=== PATIENT | male | born 2000 | race Caucasian/White ===

== ENCOUNTER → 2023-02-03 10:53 | Outpatient (BNVA) | payer SELFPAY | PROVIDERS: PCP Nurse Practitioner Family; Visit Provider Physician Assistant Medical | DX: Z02.79 Encounter for issue of other medical certificate (principal) ==

== ENCOUNTER 2025-04-05 13:39 | Outpatient (AMB) | payer BC, SELFPAY ==
--- NOTE | 2025-04-05 13:43 | A.OFFPC_ITS ---
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 Allergies No Known Allergies Allergy (Verified 04/05/25 14:02) Medication List - Last Reconciled 04/05/[address] PA-C No Known Home Meds Tobacco use date assessed: 04/05/25 Dental Screening Dental Screen Date: 04/05/25 Did you have a dental visit in the last 12 months?: Yes Did you have a dental problem in the last 6 months where you did not have access to dental care?: No Was dental information given to patient?: Yes HPI Establish Care HPI Details The patient is a 25-year-old male presenting with establishment of primary care, annual physical exam and and in addition for evaluation of hand numbness. The patient reports numbness in both hands, particularly affecting the first three fingers, which is most pronounced in the morning upon waking. He describes the sensation as similar to when one sits on their hands, and it is exacerbated by certain positions during sleep and activities such as holding a phone or driving. The patient has a history of visiting urgent care and a hand specialist, where carpal tunnel syndrome, cubital tunnel syndrome, and ulnar nerve entrapment were discussed. He has not undergone any surgical interventions and is considering non-surgical options such as wrist braces and physical therapy. The patient has no significant past medical history except for a previous right arm fracture. He has no history of medication use and has not had recent blood work, except for a normal urinalysis in 2019. Socially, the patient works for the [employer], lives alone, and denies the use of tobacco, alcohol, or recreational drugs. He has a family history of cardiovascular issues, including his father having high blood pressure and a stroke in his 40s. Social History - Employment: Works for the [employer] - Housing: Lives alone - Substance Use: Denies use of tobacco, alcohol, or recreational drugs - Family History: Father had high blood pressure and a stroke in his 40s [facility] Medical History (Updated 04/05/25 @ 14:[address] PA-C) Ulnar nerve entrapment Preventative health care Annual physical exam Bilateral wrist pain Cubital tunnel syndrome Carpal tunnel syndrome on both sides Class 1 obesity with body mass index (BMI) of 33.0 to 33.9 in adult Encounter to establish care Social History Housing: House Patient Tobacco Use Status: Never used Tobacco e-Cigarette/Vaping Use: Never Used service: No Current occupational status: employed Current occupational exposures/hazards: No Questionnaire PHQ-9 Over the last 2 weeks, how often have you been bothered by any of the following problems? 1. Little interest or pleasure in doing things: not at all 2. Feeling down, depressed, or hopeless: not at all 3. Trouble falling or staying asleep, or sleeping too much: not at all 4. Feeling tired or having little energy: not at all 5. Poor appetite or overeating: not at all 6. Feeling bad about yourself - or that you are a failure or have let yourself or your family down: not at all 7. Trouble concentrating on things, such as reading the newspaper or watching television: not at all 8. Moving or speaking so slowly that other people could have noticed. Or the opposite - being so fidgety or restless that you have been moving around a lot more than usual: not at all 9. Thoughts that you would be better off or of hurting yourself in some way: not at all Total score: 0 Depression Screening Interpretation: Negative Depression Screening Done: Yes 85095 - PHQ-9 Billing: Yes Source: Developed by Drs. Jimmy Stallings, Yolanda Enamorado, Kannan Reed and colleagues, with an educational jovanna from [employer]. Thrive Questionnaire Date Thrive assessed: 04/05/25 I am a: Patient What is your living situation today?: I have a steady place to live Within the past 12 months, did the food you bought not last and you didn't have the money to get more?: Never true Within the past 12 months, did you worry whether your food would run out before you got money to buy more?: Never true Do you have trouble paying for medicines?: No Do you have trouble getting transportation to medical appointments?: No Do you have trouble paying your heating and electricity bill?: No Do you have trouble taking care of your child, family member or friend?: No Do you have trouble with day-to-day activities such as bathing, preparing meals, shopping, managing finances, etc.?: No Are you currently unemployed and looking for a job?: No Are you interested in more education?: No THRIVE Score: 0 AUDIT C Alcohol Use Questionnaire (AUDIT-C) 1. How often do you have a drink containing alcohol?: Never 2. How many drinks containing alcohol do you have on a typical day when you are drinking?: 1 or 2 3. How often do you have six or more drinks on one occasion?: Never Total Score: 0 Score Reviewed/Action Taken: No JOAN-7 AMB Questionnaire JOAN-7 Date JOAN - 7 assessed: 04/05/25 Feeling nervous, anxious, or on edge: 0 = Not at all Not being able to stop or control worryin = Not at all Worrying too much about different things: 0 = Not at all Trouble relaxin = Not at all Being so restless that it is hard to sit still: 0 = Not at all Becoming easily annoyed or irritable: 0 = Not at all Feeling afraid as if something awful might happen: 0 = Not at all Total JOAN-7 score (0-4 normal; 5-9 mild; 10-14 moderate; 15-21 severe): 0 Source: Developed by Drs. Jimmy Stallings, Yolanda Enamorado, Kannan Reed and colleagues, with an educational jovanna from [employer]. JOAN-7 Assessment Billing JOAN-7 Assessment Tool: JOAN-7 Assessment 33877 Review of Systems Const Details: - Neurological: Reports numbness in both hands, particularly in the first three fingers, most pronounced in the morning - Cardiovascular: Denies chest pain, dyspnea, or leg swelling - Gastrointestinal: Denies black or bloody stools Physical exam (Primary Care) Vital Signs: Last Vital Signs Temp 98.6 F 04/05/25 13:55 Pulse 77 04/05/25 13:55 BP 132/78 04/05/25 13:55 Pulse Ox 96 04/05/25 13:55 Care Plan Goal for BP management: <140/90 at Goal BMI result Body Mass Index 33.3 BMI Assessment/Plan discussion: High BMI High, discussed plan: lifestyle, weight reduction, dietary, physical activity and alcohol moderation Tobacco/Smoking Status: Tobacco use Status Tobacco use date assessed 04/05/25 04/05/25 13:59 Patient Tobacco Use Status Never used Tobacco 04/05/25 13:59 e-Cigarette/Vaping Use Never Used 04/05/25 13:59 Depression Screening Interpretation: Negative Thrive Assessment: Date of Thrive Assessment Date Thrive assessed 04/05/25 04/05/25 13:59 Const Other: Appearance: Alert. Oriented X3. No acute distress. Head: Normal external exam. Normocephalic. Atraumatic. Eyes: Pupils are equal, round, and reactive to light. Extraocular movements intact. Conjunctiva and sclera normal. Eyelids normal. Ears: External auditory canal normal. Tympanic membranes normal. Throat: Pharynx normal. Uvula midline. Moist mucous membranes. Neck: Normal inspection. Neck supple. Full range of motion. No adenopathy. Thyroid Normal. No meningeal signs. No neck mass noted. Cardiovascular: Normal heart rate and rhythm. Heart sound normal. No murmurs noted. Pulses normal throughout. Respiratory: No respiratory distress. Painless inspiration. Breath sounds normal. No wheezes/rales/rhonchi noted. Chest nontender. No accessory muscle usage noted or decreased air movement noted. Abdomen: Soft and nontender. Bowel sounds normal in all 4 quadrants. No distention noted. No organomegaly noted. No visible injury noted. Back: No costovertebral angle tenderness. Full range of motion noted. Skin: Skin warm and dry. Normal skin color. Normal skin turgor. No rashes/lesions/lacerations noted. Extremities: No lower extremity edema. Extremities exhibit normal range of motion. Extremities nontender. Complaints of numbness in both hands, primarily affecting the first three fingers, suggestive of carpal tunnel syndrome. Neuro: Oriented X 3. No motor deficit. No sensory deficit. Reflexes normal. Complaints of numbness in both hands, primarily affecting the first three fingers, suggestive of carpal tunnel syndrome. Coding Level of Care Code New Pt Level 4 (50521) New Pt Prev Care 18-39yr(91111 Diagnoses Annual physical exam Z00.00 Encounter to establish care Z76.89 Carpal tunnel syndrome on both sides G56.03 Class 1 obesity with body mass index (BMI) of 33.0 to 33.9 in adult E66.811; Z68.33 Preventative health care Z00.00 Cubital tunnel syndrome G56.20 Ulnar nerve entrapment G56.20 Additional Codes PHQ-9 - 09387 - PHQ-9 Billing: Yes ([id number]) JOAN-7 Assessment Billing - JOAN-7 Assessment Tool: JOAN-7 Assessment 06142 ([id number]) Time Spent (min) 45 Assessment & Plan Assessment & Plan (1) Annual physical exam: Code(s): Z00.00 - Encounter for general adult medical examination without abnormal findings Category: Medical (2) Encounter to establish care: Code(s): Z76.89 - Persons encountering health services in other specified circumstances Category: Medical (3) Carpal tunnel syndrome on both sides: Code(s): G56.03 - Carpal tunnel syndrome, bilateral upper limbs Category: Medical Plan: The patient is advised to try wrist braces at night to alleviate symptoms of carpal tunnel syndrome. Physical therapy is recommended as a non-surgical intervention to address nerve entrapment. Cortisone injections are considered for pain management if symptoms persist, with surgery as a last resort. (4) Class 1 obesity with body mass index (BMI) of 33.0 to 33.9 in adult: Code(s): E66.811 - Obesity, class 1; Z68.33 - Body mass index [BMI] 33.0-33.9, adult Category: Medical Plan: Patient has improved diet and exercise regimen. Condition is chronic and stable continue to monitor. (5) Preventative health care: Code(s): Z00.00 - Encounter for general adult medical examination without abnormal findings Category: Medical Plan: Comprehensive blood work is ordered, including CBC, CMP, cholesterol, liver enzymes, thyroid, vitamin B12, vitamin D, PSA, and hemoglobin A1c. The patient is instructed to fast for 10-12 hours prior to the blood draw. A follow-up appointment is scheduled in six months to review results and monitor health status. (6) Cubital tunnel syndrome: Code(s): G56.20 - Lesion of ulnar nerve, unspecified upper limb Category: Medical Plan: The patient is encouraged to avoid positions that exacerbate symptoms and to consider wrist braces for support. Physical therapy is suggested to improve nerve function and reduce symptoms. (7) Ulnar nerve entrapment: Code(s): G56.20 - Lesion of ulnar nerve, unspecified upper limb Category: Medical Plan: The patient is advised to modify activities that worsen symptoms and to use wrist braces as needed. Consideration of physical therapy to alleviate nerve compression is recommended. Plan Plan Patient was informed and verbally consented to the use of an ambient scribe for clinic note documentation during this visit. 1. Carpal Tunnel Syndrome The patient is advised to try wrist braces at night to alleviate symptoms of carpal tunnel syndrome. Physical therapy is recommended as a non-surgical intervention to address nerve entrapment. Cortisone injections are considered for pain management if symptoms persist, with surgery as a last resort. 2. Cubital Tunnel Syndrome The patient is encouraged to avoid positions that exacerbate symptoms and to consider wrist braces for support. Physical therapy is suggested to improve nerve function and reduce symptoms. 3. Ulnar Nerve Entrapment The patient is advised to modify activities that worsen symptoms and to use wrist braces as needed. Consideration of physical therapy to alleviate nerve compression is recommended. 4. Preventative Care Comprehensive blood work is ordered, including CBC, CMP, cholesterol, liver enzymes, thyroid, vitamin B12, vitamin D, PSA, and hemoglobin A1c. The patient is instructed to fast for 10-12 hours prior to the blood draw. A follow-up appointment is scheduled in six months to review results and monitor health status. During the visit, we discussed the patient's symptoms of hand numbness and the likely diagnoses of carpal tunnel syndrome, cubital tunnel syndrome, and ulnar nerve entrapment. I recommended non-surgical interventions such as wrist braces and physical therapy as initial management strategies. We also discussed the option of cortisone injections for pain management, with surgery as a last resort if symptoms persist. For preventative care, comprehensive blood work was ordered, and the patient was advised to fast prior to the tests. A follow-up appointment was scheduled in six months to review the results and monitor the patient's health status. Orders: Orders Lipid Panel Today Z00.00 - Encounter for general adult medical examination without abnormal findings PSA,Total (Free>4and<10) Today Z00.00 - Encounter for general adult medical examination without abnormal findings C Reactive Protein Today Z00.00 - Encounter for general adult medical examination without abnormal findings Comprehensive [place]. Panel Fast Today Z00.00 - Encounter for general adult medical examination without abnormal findings Complete Blood Count Auto Diff Today Z00.00 - Encounter for general adult medical examination without abnormal findings Hemoglobin A1c Today Z00.00 - Encounter for general adult medical examination without abnormal findings Liver Panel Today Z00.00 - Encounter for general adult medical examination without abnormal findings Magnesium Today Z00.00 - Encounter for general adult medical examination without abnormal findings Vitamin B12 and Folate Today Z00.00 - Encounter for general adult medical examination without abnormal findings Vitamin D 25-OH Total Today Z00.00 - Encounter for general adult medical examination without abnormal findings TSH reflex Free T4 Today Z00.00 - Encounter for general adult medical examination without abnormal findings XR Wrist Florentin min 3V Today M25.531 - Pain in right wrist, M25.532 - Pain in left wrist Referrals Orthopedics Referral G56.03 - Carpal tunnel syndrome, bilateral upper limbs, G56.20 - Lesion of ulnar nerve, unspecified upper limb Medications: New meloxicam 15 mg PO DAILY 30 tabs 1RF Patient Instructions: - Wear wrist braces at night to help with hand numbness. - Consider physical therapy to improve symptoms. - Fast for 10-12 hours before your blood work appointment. - Schedule a follow-up appointment in six months to discuss blood work results.
[2025-04-05 13:55] VITALS: BP 132/78; PULSE 77; TEMP 37; O2SAT 96; BMI 33.3
--- OUTSIDE RECORDS SUMMARY | 2025-04-05 15:54 | XMS_ITS | Encounter Summary ---
Author Organization [facility] Address [address] [place] [address] Phone Care Team Providers Care Payroll Coordinator Name Role Phone Bianca Miller MD Primary Care Provider [phone] Encounter Details Date Type Department Care Team (Late st Contact Info) Description 01/27/2010 Documentation [facility] [address] [place] [address] Family Medicine, Physician [address] [place], [place] [id number] Social History Tobacco Use Types Packs/Day Years Used Date Smoking Tobacco: Never Assessed Sex and Gender Information Value Date Recorded Sex Assigned at Not on file Legal Sex Male 5:01 PM EDT Gender Identity Not on file Sexual Orientation Not on file documented as of this encounter Plan of Treatment Not on file documented as of this encounter Visit Diagnoses Not on filedocumented in this encounter Care Teams Payroll Coordinator Relationship Specialty Start Date End Date Bianca Miller MD [address] [address] [place] [address] PCP - General 05/23/17 01/19/23 documented as of this encounter
== END 2025-04-05 14:37 | disposition home or self-care (01) ==
PROVIDERS: Visit Provider Physician Assistant Medical
DX: Z00.00 Encounter for general adult medical examination without abnormal findings (principal); G56.03 Carpal tunnel syndrome, bilateral upper limbs; G56.20 Lesion of ulnar nerve, unspecified upper limb; E66.811 Obesity, class 1; Z68.33 Body mass index [BMI] 33.0-33.9, adult; Z76.89 Persons encountering health services in other specified circumstances

== ENCOUNTER → 2025-04-05 13:39 | Outpatient (BNVA) | payer BC, SELFPAY | PROVIDERS: Visit Provider Physician Assistant Medical | DX: Z00.00 Encounter for general adult medical examination without abnormal findings (principal); R20.0 Anesthesia of skin; G56.03 Carpal tunnel syndrome, bilateral upper limbs; E66.811 Obesity, class 1; G56.20 Lesion of ulnar nerve, unspecified upper limb; Z68.33 Body mass index [BMI] 33.0-33.9, adult; Z76.89 Persons encountering health services in other specified circumstances | CPT/HCPCS: 96127 ==

== ENCOUNTER 2025-04-09 10:58 | Outpatient (REF) | payer BC, SELFPAY ==
--- NOTE | ~2025-04-09 | XR_ITS ---
EXAMINATION: XR WRIST 3 OR MORE VIEWS BILATERAL HISTORY: M25.531 - Pain in right wrist COMPARISON: There are no prior studies available for comparison. FINDINGS: Eight views of the bilateral wrists including scaphoid views are submitted. There are bone islands in the radial styloids of both wrists. There is no fracture or dislocation. The joint spaces are preserved. The soft tissues are unremarkable. XR/XR Wrist Florentin min 3V IMPRESSION: Unremarkable examination of the bilateral wrists. Electronically signed by: Jimmy Ballard MD 04/11/2025 07:53 AM EDT
[2025-04-09 13:59] LABS: MANUAL DIFF FLAG NO
[2025-04-09 14:07] LABS: Basophils Percent Auto 0.5 % (0-2); Eosinophils Absolute Auto 0.1 X10*3/uL (0.0-0.4); Eosinophils Percent Auto 1.7 % (0-4); Hematocrit 43.2 % (42.0-52.0); Hemoglobin 14.8 g/dl (14.0-18.0); Imm Gran Abs Auto 0.03 X10*3/uL (0.00-0.03); Imm Gran Pct Auto 0.5 % (0.0-0.4); Lymphocytes Absolute Auto 1.7 X10*3/uL (1.2-4.9); Mean Corpuscular HGB Conc 34.3 g/dl (31.0-36.0); Mean Corpuscular Hemoglobin 30.2 pg (27.0-33.0); Mean Corpuscular Volume 88.2 fL (80.0-98.0); Mean Platelet Volume 11.4 fL (9.4-12.4); Monocytes Absolute Auto 0.6 X10*3/uL (0.1-1.2); Monocytes Percent Auto 9.6 % (2-11); Neutrophils Absolute Auto 3.4 x10*3/uL (2.0-8.3); Neutrophils Percent Auto 58.7 % (45-73); Platelet Count 256 X10*3/uL (160-400); Red Cell Distribution Width 12.8 % (11.0-16.0); White Blood Count 5.7 X10*3/uL (4.8-10.8)
[2025-04-09 14:14] LABS: Estimated Average Glucose 103 mg/dL; Hemoglobin A1c % 5.2 % (<6.0); Total Hemoglobin (HGBA1C) 3866.8715 umol/L
[2025-04-09 14:36] LABS: PSA,Total (Free>4and<10) 1.29 ng/mL (0.00-4.00)
[2025-04-09 14:51] LABS: Folate 12.6 ng/mL (> or = 4.0); Vitamin B12 551 pg/mL (200-900)
[2025-04-09 18:14] LABS: Alanine Aminotransferase 25 U/L (0-40); Albumin Level 4.8 g/dL (3.5-5.0); Alkaline Phosphatase 61 U/L (39-117); Anion Gap 14 (12-20); Aspartate Amino Transferase 28 U/L (5-37); Bilirubin Direct 0.4 mg/dL (0.0-0.5); Bilirubin Total 1.6 mg/dL (0.0-1.0); Blood Urea Nitrogen 14 mg/dL (9-16); C Reactive Protein < 0.10 mg/dL (< or = 0.50); Calcium 9.3 mg/dL (8.4-10.2); Carbon Dioxide 24 mmol/L (22-29); Chloride 106 mmol/L (96-108); Cholesterol 178 mg/dL (<200); Estimated Glomerular Filt Rate > 60; Glucose Fasting 80 mg/dL (60-99); HDL Cholesterol 50 mg/dL (>40); LDL Cholesterol Calculated 115 mg/dL (<100); Magnesium 2.4 mg/dL (1.6-2.6); Potassium 4.4 mmol/L (3.3-5.1); Sodium 140 mmol/L (135-145); Total Protein 7.1 g/dL (6.5-8.0); Triglycerides 68 mg/dL (<150)
[2025-04-09 18:31] LABS: TSH reflex Free T4 2.05 uIU/mL (0.32-4.0); Vitamin D 25-OH Total 32.1 ng/mL (>30)
== END 2025-04-09 10:59 | disposition home or self-care (01) ==
LOC: HO.HMGCX 10:58
PROVIDERS: Visit Provider Physician Assistant Medical
DX: Z00.00 Encounter for general adult medical examination without abnormal findings (principal); M25.532 Pain in left wrist; M25.531 Pain in right wrist; Z12.5 Encounter for screening for malignant neoplasm of prostate; Z13.1 Encounter for screening for diabetes mellitus; Z13.6 Encounter for screening for cardiovascular disorders
CPT/HCPCS: 36415; 73110; 80053; 80061; 80076; 82248; 82306; 82607; 82746; 83036; 83735; 84153; 84443; 85025; 86140

== ENCOUNTER → 2025-04-09 11:16 | Outpatient (BNV) | payer BC, SELFPAY | PROVIDERS: Visit Provider Radiology Diagnostic Radiology | DX: M25.531 Pain in right wrist (principal) | CPT/HCPCS: 73110 ==